=== PATIENT | female | born 1980 | race Caucasian/White ===

== ENCOUNTER 2022-05-01 08:03 | Emergency (ER) | payer OTHER, SELFPAY ==
[2022-05-01 08:06] VITALS: BP 131/89; PULSE 85; RESP 20; TEMP 36.7; O2SAT 99
--- NOTE | 2022-05-01 08:20 | ED.URI ---
HPI - URI/Sore Throat General Chief Complaint: Upper Respiratory Infection Stated Complaint: Sinus Pain Time Seen by Provider: 05/01/22 08:30 Source: patient and RN notes reviewed Mode of arrival: ambulatory Limitations: no limitations History of Present Illness HPI Narrative: 41-year-old female presents concern for 90 day history of symptoms. She reports productive cough, nasal congestion and green drainage, left facial pain jaw pain, left tooth pain, eye pain and pressure. She reports she has been taking [id number] medications without relief. She reports she saw her primary doctor on Saturday who prescribed her lidocaine mouthwash that she has not had relief from. She reports swelling under her eye this morning when she woke up. MD elicited complaint: rhinorrhea and nasal congestion Related Data Home Medications Medication Instructions Recorded Confirmed esomeprazole magnesium 20 mg 20 mg PO DAILY 05/01/22 05/01/22 capsule,delayed release (Nexium) valsartan 160 mg tablet 160 mg DAILY 05/01/22 05/01/22 Allergies Allergy/AdvReac Type Severity Reaction Status Date / Time No Known Allergies Allergy Verified 05/01/22 08:21 Review of Systems Review of Systems: CONSTITUTIONAL: Reports malaise. Denies chills, sweats, or fever. EYES: Denies visual changes, redness, or discharge. Left eye pressure ENT: Reports rhinorrhea, congestion, sinus pain. Denies otalgia and sore throat. CARDIOVASCULAR: Denies chest pain, palpitations, or edema. RESPIRATORY: Reports productive cough. Denies dyspnea. GASTROINTESTINAL: Denies abdominal pain, nausea, vomiting, diarrhea SKIN: Denies rash or itching. MUSCULOSKELETAL: Denies myalgia. NEUROLOGIC: Report headache. All systems reviewed & are unremarkable except as noted in HPI and below [facility] Comments At time of signature, agree with nursing past medical, surgical, social and family history. There is no relevant family history pertinent to the presenting complaint Exam Narrative: GENERAL: Nontoxic-appearing and in no acute distress. HEAD: Normocephalic EYES: PERRLA, conjunctivae clear, mild swelling under the left eye without concern for periorbital cellulitis. ENT: Nares clear, turbinates edematous and erythematous, sinus tenderness, mild left facial swelling. Mucous membranes moist. TM pearly presley with dull light reflex bilaterally; no tragal tenderness. Oropharynx not erythematous without lesions. Tonsils not enlarged and without exudate, no drooling, no hoarseness, no trismus, uvula midline. NECK: Supple. No lymphadenopathy CHEST: Clear to auscultation, breath sounds equal. No wheezing, rhonchi, rales, or stridor. No respiratory distress, speaks in full sentences. HEART: Regular rate and rhythm. No murmur heard. SKIN: Warm, dry, no rash. NEURO: Alert and oriented x3. PSYCH: Normal mood and affect Course Course Emergency Course: Patient is aware of diagnosis, understands and agrees to treatment plan. Anticipatory guidance given. Patient agrees to follow-up as directed and is aware of reasons to seek care at the emergency department. Portions of this record may have been created with voice recognition software Level of Care: Express Care Visit Vital Signs Vital signs: Vital Signs Temperature 98.0 F 05/01/22 08:06 Pulse Rate 85 05/01/22 08:06 Respiratory Rate 20 05/01/22 08:06 Blood Pressure 131/89 05/01/22 08:06 Pulse Oximetry 99 05/01/22 08:06 Oxygen Delivery Room Air 05/01/22 08:06 Temperature 98.0 F 05/01/22 08:06 Pulse Rate 85 05/01/22 08:06 Respiratory Rate 20 05/01/22 08:06 Blood Pressure 131/89 05/01/22 08:06 Pulse Oximetry 99 05/01/22 08:06 Oxygen Delivery Room Air 05/01/22 08:06 Reviewed. MDM - URI/Sore Throat MDM Narrative Medical decision making narrative: Differential diagnosis considered: Powers virus, strep pharyngitis, allergic rhinitis, upper respiratory tract infection, sinusitis, rhinosinusitis, naso
== END 2022-05-01 08:50 | disposition home or self-care (01) ==
PROVIDERS: Emergency Provider Nurse Practitioner; PCP Internal Medicine
DX: J01.90 Acute sinusitis, unspecified (principal); B96.89 Other specified bacterial agents as the cause of diseases classified elsewhere
CPT/HCPCS: 99213; G0463

== ENCOUNTER 2023-08-12 14:48 | Emergency (ER) | payer OTHER, SELFPAY ==
[2023-08-12 14:50] VITALS: BP 143/96; PULSE 75; RESP 16; TEMP 37.2; O2SAT 100
--- NOTE | 2023-08-12 15:07 | ED.GENADULT ---
HPI - General Adult General Chief complaint: Upper Respiratory Infection Stated complaint: Sore Throat/Runny Nose/Body Aches Source: patient, RN notes reviewed and old records reviewed Mode of arrival: ambulatory Limitations: no limitations History of Present Illness HPI narrative: 42-year-old female presents to [facility] with complaints of cough, congestion, headache, fever that started approximately 12 days ago. Patient taking [id number]-ywx-[id number] medications with little relief. Patient states is now having dark brown phlegm production and nasal discharge. Related Data Home Medications Medication Instructions Recorded Confirmed esomeprazole magnesium 20 mg 20 mg PO DAILY 05/01/22 08/12/23 capsule,delayed release (Nexium) gabapentin 100 mg capsule 100 mg PO TID 08/12/23 08/12/23 norethindrone (contraceptive) 0.35 0.35 mg PO DAILY 08/12/23 08/12/23 mg tablet Allergies Allergy/AdvReac Type Severity Reaction Status Date / Time No Known Allergies Allergy Verified 05/01/22 08:21 Review of Systems Constitutional: Constitutional: Reports no additional constitutional complaints, Denies body ache(s), Denies chills, Denies fatigue, Denies fever(s) and Reports headache(s) Eyes: Eyes: Reports no additional eye complaints and Denies blurry vision ENT: Reports system reviewed and no additional complaints, except as documented, Denies vertigo, Denies dizziness, Denies ear discharge, Denies otalgia, Denies facial pain, Denies headache(s), Reports nasal congestion, Reports nasal discharge, Denies sinus pain, Reports sinus pressure and Denies sore throat Cardiovascular: Cardiovascular: Reports no additional cardiovascular complaints, Denies chest pain, Denies chest pain at rest, Denies rapid heart rate and Denies dyspnea Respiratory: Respiratory: Reports no additional respiratory complaints, Reports chest congestion, Reports cough, Denies pain on inspiration, Denies pain with cough and Denies dyspnea Gastrointestinal: Gastrointestinal: Denies abdominal pain, Denies diarrhea, Denies nausea and Denies vomiting Integumentary/Breasts: Skin/Breast: Denies rash Neurologic: Reports system reviewed and no additional complaints, except as documented, Denies vertigo, Denies dizziness and Denies headache(s) Endocrine: Endocrine: Denies fatigue [facility] Comments At the time of my signature, I reviewed and agree with the nursing past medical, surgical, social, and family history. There is no relevant family history pertinent to the patient complaint. Exam Const: General: cooperative, healthy appearing, no acute distress and well nourished Nutritional Appearance: well nourished Orientation/consciousness: patient oriented x3 Limitations: no limitations HENMT: Head: normal to inspection and normocephalic Ears: external ears normal, TM's normal bilaterally, EAC's normal and mastoids normal Face/Nose/Sinus: normal facial exam Face and sinus: normal facial exam and sinus tenderness frontal Mouth: Yes Normal oral and palatal mucosa present, Yes moist mucous membranes and Yes Abnormal oral and palatal mucosa present erythematous Throat: tonsils normal, uvula midline and no uvular edema Eyes: General: appearance normal, both eyes and all related structures Sclera: sclerae normal Pupils: Equal, round and reactive pupils present Resp: Effort & Inspection: normal respiratory effort, able to speak in complete sentences, no audible wheezes, no cough, no respiratory distress and no retractions Auscultation: clear to auscultation bilaterally, no crackles, no rales, no rhonchi and no wheezes Cardio: Rate: regular rate Rhythm: regular rhythm Skin: General skin exam: normal color and no rashes or lesions noted Neuro: General: patient oriented x3 Cranial nerves: Yes Equal, round and reactive pupils present Psych: Appearance: grossly normal Mental Status: mental status grossly normal Speech and movement: Normal speech and movement present Affect: n
== END 2023-08-12 15:23 | disposition home or self-care (01) ==
PROVIDERS: Emergency Provider Registered Nurse; PCP Internal Medicine
DX: J06.9 Acute upper respiratory infection, unspecified (principal); B37.9 Candidiasis, unspecified; T36.95XA Adverse effect of unspecified systemic antibiotic, initial encounter
CPT/HCPCS: 99213; G0463

== ENCOUNTER 2024-06-02 16:02 | Emergency (ER) | payer SELFPAY | END 2024-06-02 16:12 | disposition left against medical advice (07) | PROVIDERS: Emergency Provider Nurse Practitioner; PCP Internal Medicine | DX: Z53.21 Procedure and treatment not carried out due to patient leaving prior to being seen by health care provider (principal) | CPT/HCPCS: 99199 ==

== ENCOUNTER 2024-09-10 05:52 | Day surgery (SDC) | payer OTHER, SELFPAY ==
[2024-08-20 09:56] VITALS: BMI 31.6
[2024-09-10] VITALS (9 sets, daily range): BP systolic 110–159; BP diastolic 75–113; PULSE 50–86; RESP 14–16; TEMP 36.4–36.8; O2SAT 99–100
--- OUTSIDE RECORDS SUMMARY | 2024-09-10 06:04 | XMS_ITS | Referral Summary ---
Author Organization [facility] [place] [address] Address [address] [place] [address] Phone Care Team Providers Care Final Application Reviewer Name Role Phone Danya Mccollum MD Primary Care Provider [phone] Earnest Dempsey MD Unavailable [phone] Encounters Date Type Department Care Team Description 07/23/2024 7:43 AM FRONT ELEVATOR OPERATOR - 07/23/2024 11:59 PM FRONT ELEVATOR OPERATOR Hospital Encounter [facility] Medical [facility] Medicine [address] [place] [address] [place] [id number] Discharge Disposition: Discharge to home or self care 07/23/2024 10:00 AM FRONT ELEVATOR OPERATOR Office Visit [facility] Orthopedics and Sports Medicine [address] [place] [address] [address], [place] [id number] Jada Morales NP Greater trochanteric bursitis of both hips (Primary Dx) from Last 3 Months Allergies Active Allergy Reactions Criticality Noted Date Comments Doxycycline Other (See comments) High 01/07/2024 Hard to swallow and raw throaT Gabapentin Other (See comments) High 01/07/[address] (NexIUM) 20 mg capsuleIndicati ons:REFLUX Take 1 capsule (20 mg total) by mouth daily before breakfast Active naproxen DR (EC NAPROSYN) 500 mg EC tablet Take 1 tablet (500 mg total) by mouth 2 (two) times a day with meals Active Active Problems Problem Noted Date Diagnosed Date Abnormal uterine bleeding (AUB) 02/24/2024 Deviated nasal septum 09/03/2022 Overview (09/03/2022): Added automatically from request for surgery [id number] Nasal turbinate hypertrophy 09/03/2022 Overview (09/03/2022): Added automatically from request for surgery [id number] Chronic sinusitis 09/03/2022 Overview (09/03/2022): Added automatically from request for surgery [id number] Greater trochanteric bursitis of both hips 06/07 Social History Tobacco Use Types Packs/Day Years Used Date Smoking Tobacco: Former Cigarettes 0.3 10 1 2004 Passive Smoke Exposure: Past Smokeless Tobacco: Never Tobacco Cessation:Counseling Given: Not Answered Alcohol Use Standard Drinks/Week Comments Yes 0 (1 standard drink = 0.6 oz pur e alcohol) AUDIT-C Answer Date Recorded Q1: How often do you have a drink containing alc ohol? 2-3 times a week 04/06/2024 Q2: How many drinks containi ng alcohol do you have on a typical day when you are drinking? 1 or 2 04/06/2024 Q3: How often do you have si x or more drinks on one occasion? Never 04/06/2024 Hunger Vital Sign Answer Date Recorded Within the past 12 months, y ou worried that your food would run out before you got the money to buy more. Never true 05/04/20 24 Within the past 12 months, t he food you bought just didn't last and you didn't have money to get more. Never true 05/04/2024 Personal Safety Answer Date Recorded Have you ever been in or are you currently in a harmful physical or emotional relationship or is someone making you feel afraid or unsafe? Denies 04/06/2024 Comments No Sex and Gender Information Value Date Recorded Sex Assigned at Not on file Legal Sex Female 11:49 PM FRONT ELEVATOR OPERATOR Gender Identity Not on file Sexual Orientation Not on file Last Filed Vital Signs Vital Sign Reading Time Taken Comments Blood Pressure 122/85 07/23/2024 10:07 AM FRONT ELEVATOR OPERATOR Pulse 73 07/23/2024 10:07 AM FRONT ELEVATOR OPERATOR Temperature 36.4 C (97.5 F) 04/06/2024 10:32 AM CDT Respiratory Rate 9 04/06/2024 12:10 PM CDT Oxygen Saturation 99% 05/04/2024 11:23 AM FRONT ELEVATOR OPERATOR Inhaled Oxygen Concentration - - Weight 98.4 kg (217 lb) 07/23/2024 10:07 AM FRONT ELEVATOR OPERATOR Height 172.7 cm (5' 8 ) 07/23/2024 10:07 AM FRONT ELEVATOR OPERATOR Body Mass Index 32.99 07/23/2024 10:07 AM FRONT ELEVATOR OPERATOR Plan of Treatment Not on file Procedures Procedure Name Priority Date/Time Associated Diagnosis Comments XR HIPS BILATERAL 3 OR 4 VW Schedule Routine, Read Routine (OP Routine) 07/23/2024 10:02 AM FRONT ELEVATOR OPERATOR Greater trochanteric bursitis of both hips IA ARTHROCENTESIS ASPIR&/INJ MAJOR JT/BURSA W/O US Routine 07/23/2024 10:00 AM FRONT ELEVATOR OPERATOR Greater trochanteric bursitis of both hips IA ARTHROCENTESIS ASPIR&/INJ MAJOR JT/BURSA W/O US Routine 07/23/2024 10:00 AM FRONT ELEVATOR OPERATOR Greater trochanteric bursitis of both hips SCREENING MAMMOGRAM BILATERAL W TORSTEN W IMPLANTS Schedule Routine, Read Routine (OP Routine) 09/23/2023 8:49 AM CDT Screening mammogram, encounter for from Last 3 Months or Most Recently Relevant to Health Maintenance Results * XR Hips Bilateral 3 or 4 Views (07/23/2024 10:02 AM FRONT ELEVATOR OPERATOR) Anatomical Region Laterality Modality Lower Extremities, Hip, Pelvis Bilateral D igital Radiography Narrative 07/23/2024 10:36 AM FRONT ELEVATOR OPERATOR X-ray of the bilateral hips viewed and interpreted. There is no evidence of fracture, subluxation, or bony abnormality. us Jada Morales NP IMG XR PROCEDURES Final Result * IA ARTHROCENTESIS ASPIR&/INJ MAJOR JT/BURSA W/O US (07/23/2024 10:00 AM FRONT ELEVATOR OPERATOR) Narrative Jada Morales NP - 07/23/2024 10:00 AM FRONT ELEVATOR OPERATOR Jada Morales NP 07/23/2024 10:36 AM Greater trochanteric bursa injection Performed by: Jada Morales NP Authorized by: Jada Morales NP Greater Trochanteric Bursa Injection: Consent Given by: Patient Site marked: the procedure site was marked Timeout: prior to procedure the correct patient, procedure, and site was verified Verbal consent obtained?: Yes Prior to the start of the procedure, verbal verification by the procedure participant(s) confirmed (as applicable): corect patient idenity; correct site/side marked and visible; agreement on the procedure to be done; correct patient positioning; an accurate procedure consent form, relevant images and results correctly labeled and displayed; any safety precautions based on clinical history and/or medication use have been addressed.: Supporting Documentation: Indications: Pain and therapeutic Procedure Details: Site: Left Greater Trochanteric Bursa Prep: patient was prepped and draped in usual sterile fashion Patient position: Sidelying Needle Size: 22 G Ultrasound guidance: No Approach: Lateral Medications: 80 mg methylPREDNISolone acetate 80 mg/mL; 4 mL lidocaine 20 mg/mL (2 %) Patient tolerance: Patient tolerated the procedure well with no immediate complications Result [facility] Jada Morales NP IN CLINIC/BEDSIDE ORDER [place] Final Result * IA ARTHROCENTESIS ASPIR&/INJ MAJOR JT/BURSA W/O US (07/23/2024 10:00 AM [facility]) Narrative Jada Morales NP - 07/23/2024 10:00 AM FRONT ELEVATOR OPERATOR Jada Morales NP 07/23/2024 10:36 AM Greater trochanteric bursa injection Performed by: Jada Morales NP Authorized by: Jada Morales NP Greater Trochanteric Bursa Injection: Consent Given by: Patient Site marked: the procedure site was marked Timeout: prior to procedure the correct patient, procedure, and site was verified Verbal consent obtained?: Yes Prior to the start of the procedure, verbal verification by the procedure participant(s) confirmed (as applicable): corect patient idenity; correct site/side marked and visible; agreement on the procedure to be done; correct patient positioning; an accurate procedure consent form, relevant images and results correctly labeled and displayed; any safety precautions based on clinical history and/or medication use have been addressed.: Supporting Documentation: Indications: Pain and therapeutic Procedure Details: Site: Right Greater Trochanteric Bursa Prep: patient was prepped and draped in usual sterile fashion Patient position: Sidelying Needle Size: 22 G Ultrasound guidance: No Approach: Lateral Medications: 80 mg methylPREDNISolone acetate 80 mg/mL; 4 mL lidocaine 20 mg/mL (2 %) Patient tolerance: Patient tolerated the procedure well with no immediate complications Jada Moraels ATHLETIC TEAM PHYSICIAN IN CLINIC/BEDSIDE ORDER [place] Final Result * Screening Mammogram Bilateral W Torsten W Implants (09/23/2023 8:49 AM CDT) Anatomical Region Laterality Modality Breast Bilateral Mammography 09/23/2023 8:58 AM CDT Impressions 09/23/2023 8:58 AM CDT There is no mammographic evidence of malignancy. A 1 year screening mammogram is recommended. BI-RADS: 1 - Negative. The patient has been or will be contacted. The patient will be entered into a reminder system with a target due date of 1 year for her next mammogram. Electronically signed by: Areli Kim 09/23/2023 8:58 AM CDT EXAMINATION: SCREENING MAMMOGRAM BILATERAL W TORSTEN W IMPLANTS ORDERING HEALTHCARE PROVIDER: SELF SCREENING MAMMOGRAM HISTORY: Routine screening mammography. COMPARISON: 01/09/2021 TECHNIQUE: CC and MLO views of the bilateral breasts were obtained with digital technique using breast tomosynthesis with C view. Computer aided detection was utilized. FINDINGS: DENSITY: There are scattered fibroglandular elements in the bilateral breasts. BREASTS: There are bilateral retroglandular saline implants. There are no suspicious masses, suspicious calcifications, or other suspicious findings in either breast. There has been no suspicious interval change. us Self Screening Mammogram IMG MAMMO PROCEDURES Fi nal Result from Last 3 Months or Most Recently Relevant to Health Maintenance Insurance [facility] [place] [facility] Care Teams Final Application Reviewer Relationship Specialty Start Date End Date Danya Mccollum MD [address] [place] [address] PCP - General 11/09/20 Earnest Dempsey MD [address] [place] [address] [address] [place] [id number] [employer] Obstetrics and Gynecology 11/30/21
--- OUTSIDE RECORDS SUMMARY | 2024-09-10 06:04 | XMS_ITS | Data Portability ---
Author Organization [facility] Address [address] [facility] [place] [address] Care Team Providers Care Linotyper Name Role Phone QUEZADA BERKLEY Primary Care Provider [phone] Assessment No assessment recorded. Plan of Treatment Reminders Order Date Submit Date Provider Last Modified By Organization Details Last Modified Time Details Appointments ANY 30 2024 09:30A M BERKLEY QUEZADA, BELTING INSPECTOR-BC Not available Not available Not available Lab HIV 1 + 2, meanin gful use set 2024 025 [facility], [address] [facility], [facility] [address], [place], [address], 08/23/2024 16:09:16 RPR (rapid plasma reagin ), serum 2024 025 [facility], [address] [facility], [facility] [address], [place], [address], 08/23/2024 16:09:15 HBsAg (hepat itis B surfac e Ag), EIA, serum 2024 025 [facility], [address] [place] [address], [facility] [address], [place], [address], 08/23/2024 16:09:14 chlamy waleska tracho matis + neisse damaris gonorr hoeae + tricho monas vagina lis rRNA panel, RANDALL+pr obe 2024 025 [facility], [address] [facility], [facility] [address], [place], [address], 08/23/2024 16:09:13 Hepati tis C IgG Ab, qual, serum 2024 025 [facility], [address] [facility], [facility] [address], [place], [address], 08/23/2024 16:09:10 mycopl asma genita alism DNA, QL, RANDALL+pr obe, urine 2024 025 [facility], [address] [facility], [facility] [address], [place], [address], 08/23/2024 16:09:12 HSV 2 IgG Ab, QN, IA, serum 2024 025 [facility]), Patient Can Go To The Location Of Their Choice, [id number] 08/23/2024 16:09:11 influe nza virus A + B + SARS-C oV-2 (COVID 19) Ag panel, rapid IA, upper respir atory specim en 2023 024 nsuthan In-Office Order, Internal Use Only DO Not Attach Compendium DO Not Attach Compendium, Do Not Delete/merge, [id number] 04/16/2024 11:41:34 mycopl asma gencharmaine antoine DNA, qualit ative, PCR 2023 024 [facility], [address] [place] [address], [facility] [address], [place], [address], 02/24/2024 16:11:51 vagina l pathog ens panel, RANDALL+pr obe, vagina l fluid 2023 024 [facility], [address] [facility], [facility] [address], [place], [address], 02/24/2024 16:11:50 Referral ENT surger y referr al 2024 025 [email or web address] Hugo Melendrez MD, [address] [facility] [address], [address], [place], [address], 09/03/2024 14:00:49 plasti c surgeo n referr al 2023 [email or web address] Gretel An MD, [address] [facility] [address], [place], [address], 07/01/2024 12:07:45 Procedures None record ed. Surgeries None record ed. Imaging None record ed. Medication Orders sulfam ethoxa zole 800 mg-tri methop rim 160 mg tablet 2024 [id number], [address], [place], [place], [id number], 08/19/2024 10:35:12 Difluc an 150 mg tablet 2024 [facility], [address], [place], [place], [id number], 08/19/2024 10:35:11 amoxic illin 500 mg tablet 2023 [facility]18263, [address], [place], [place], [id number], 05/04/2024 09:16:43 albute rol sulfat e HFA 90 mcg/ac tuatio n aeroso l inhale r [facility], [address], [place], [place], [id number], 08/14/2024 15:47:06 Difluc an 150 mg tablet 20[facility], [address], [place], [place], [id number], 08/19/2024 10:34:46 Solose c [address] granul es in packet 2023 [facility], [address], [place], [place], [id number], 08/14/2024 15:47:57 Patient TargetsNo targets recorded. Patient Instructions Encounter Date Encounter Id Patient Instructions Last Modified By Organization Details Last Modified Time 02/20/2024 [id number] A healthy lifestyle: care instructions [email or web address] Not available 02/20/2024 11:21:02 bacterial vaginosis: care instructions [email or web address] Not available 02/20/2024 11:21:02 04/16/2024 [id number] keep f/u nsuthan Not available 04/16 13:53:55 05/04/2024 [id number] A healthy lifestyle: care instructions nsuthan Not available 05/04/2024 09:28:00 f/u in 6 month nsuthan Not available 1 07/04/2023 09:28:15 08/14/2024 [id number] Plan of care has been discussed with patient including expected therapeutic benefits and potential side effects of prescribed medication and treatments. Patient verbalizes understanding and is in agreement with the plan of care. Patient was instructed to keep all scheduled appointments and contact the clinic for any additional problems. Not available 09/07/2024 06:08:00 Reason for Referral Plastic Surgeon Referral for Excess skin of abdominal wall Referring Physician: Marvni Mccollum, Internal Medicine, Encounter Date: 05/04/2024 ENT Surgery Referral for Dev iated nasal septum Referring Physician: Berkley Quezada, Family Medicine, Encounter Date: 08/14/2024 Results Created Date Observation Date Name Description Value Unit Range Abnormal Flag Note LastModifiedBy Organization Detail LastModifiedTime 02/20/20 24 02/24/2024 NUSWA B VAGIN ITIS PLUS (VG+) atopobium vaginae HIGH - 2 score abnormal Not Available [facility]) [address] [facility], [place], [address], 02/24/2024 16:11:50 02/20/20 24 02/24/2024 NUSWA B VAGIN ITIS PLUS (VG+) bvab 2 HIGH - 2 score abnormal Not Available [facility] ([facility]) [address] [facility], [place], [address], 02/24/2024 16:11:50 02/20/20 24 02/24/2024 NUSWA B VAGIN ITIS PLUS (VG+) megasphaera 1 HIGH - 2 score abnormal Calcu late total score by addin g the 3 indiv idual bacte rial vagin osis (BV) marke r score s toget her. Total score is inter prete d as follo ws: Total score 0-1: Indic ates the absen ce of BV. Total score 2: Indet ermin ate for BV. Addit ional clini melva data shoul d be evalu ated to estab wesley a diagn osis. Total score 3-6: Indic ates the prese nce of BV. Not Available [facility] ([facility]) [address] [facility], [place], [address], 02/24/2024 16:11:50 02/20/20 24 02/24/2024 NUSWA B VAGIN ITIS PLUS (VG+) dianne albicans, RANDALL NEGATI VE negati ve Not Available [facility] ([facility]) [address] [place], [address], 02/24/2024 16:11:50 02/20/20 24 02/24/2024 NUSWA B VAGIN ITIS PLUS (VG+) dianne glabrata, RANDALL NEGATI VE negati ve Not Available [facility] ([facility]) [address] [place], [address], 02/24/2024 16:11:50 02/20/20 24 02/24/2024 NUSWA B VAGIN ITIS PLUS (VG+) trich vag by RANDALL NEGATI VE negati ve Not Available [facility] ([facility]) [address] [place], [address], 02/24/2024 16:11:50 02/20/20 24 02/24/2024 NUSWA B VAGIN ITIS PLUS (VG+) chlamydia trachomatis, RANDALL NEGATI VE negati ve Not Available [facility]) [address] [facility], [place], [address], 02/24/2024 16:11:50 02/20/20 24 02/24/2024 NUA B VAGIN ITIS PLUS (VG+) neisseria gonorrhoeae, RANDALL NEGATI VE negati ve Not Available [facility]) [address] [facility], [place], [address], 02/24/2024 16:11:50 02/20/20 24 02/24/2024 M GENIT ALIUM RANDALL, SWAB mycoplasma genitalium RANDALL NEGATI VE negati ve Not Available [facility]) [address] [facility], [place], [address], 02/24/2024 16:11:51 04/16/20 24 04/16/2024 influ ash virus A + B + SARS- CoV-2 (COVI D19) Ag panel , rapid IA, upper respi rator y speci men Flu A negati ve Not Available In-Office Order Internal Use Only DO Not Attach Compendium DO Not Attach Compendium, Do Not Delete/merge, [id number] 04/16/2024 11:38:18 04/16/20 24 04/16/2024 influ ash virus A + B + SARS- CoV-2 (COVI D19) Ag panel , rapid IA, upper respi rator y speci men Flu B negati ve Not Available In-Office Order Internal Use Only DO Not Attach Compendium DO Not Attach Compendium, Do Not Delete/merge, [id number] 04/16/2024 11:38:18 04/16/20 24 04/16/2024 influ ash virus A + B + SARS- CoV-2 (COVI D19) Ag panel , rapid IA, upper respi rator y speci men Rapid SARS CoV 2 Ag, QL IA, respiratory specimen negati ve Not Available In-Office Order Internal Use Only DO Not Attach Compendium DO Not Attach Compendium, Do Not Delete/merge, [id number] 04/16/2024 11:38:18 08/20/19 25 08/20/2024 HCV ANTIB CATRINA hep C virus Ab NON REACTI VE nonrea ctive HCV antib catrian alone does not diffe renti ate betwe en previ ously resol jadon infec tion and activ e infec tion. Equiv ocal and React davey HCV antib catrina resul ts shoul d be follo wed up with an HCV RNA test to suppo rt the diagn osis of activ e HCV infec tion. Not Available [facility] ([facility]) [address] [facility], [place], [address], 08/23/2024 16:09:09 08/20/19 25 08/20/2024 HSV-2 AB, IGG hsv 2 IgG, type spec NON REACTI VE nonrea ctive Ple ase note refer ence inter edgar singh e Curre nt guide lines and recom menda tions do not recom mend routi ne scree veena for HSV-2 in asymp tomat ic indiv idual s, inclu ding those that are pregn ant. The detec tion of HSV-2 IgG antib odies in a singl e sampl e indic ates previ ous expos ure to HSV-2 but does not give infor matio n as to the site of HSV infec tion or the timin g of expos ure. The predi ctive value of posit davey and negat davey resul ts depen ds on the popul ation 's preva lence and the prete st likel ihood of HSV-2 . HSV-2 IgG testi ng perfo rmed using the [employer] HSV-2 IgG assay . Not Available [facility]) [address] [facility], [place], [address], 08/23/2024 16:09:11 08/20/19 25 08/23/2024 M GENIT ALIUM RANDALL, URINE mycoplasma genitalium RANDALL NEGATI VE negati ve Not Available [facility]) [address] [facility], [place], [address], 08/23/2024 16:09:12 08/20/19 25 08/23/2024 CT, NG, TRICH VAG BY RANDALL chlamydia by RANDALL POSITI VE negati ve abnormal Not Available [facility]) [address] [place], [address], 08/23/2024 16:09:13 08/20/19 25 08/23/2024 CT, NG, TRICH VAG BY RANDALL gonococcus by RANDALL NEGATI VE negati ve Not Available [facility]) [address] [place], [address], 08/23/2024 16:09:13 08/20/19 25 08/23/2024 CT, NG, TRICH VAG BY RANDALL trich vag by RANDALL NEGATI VE negati ve Not Available [facility]) [address] [place], [address], 08/23/2024 16:09:13 08/20/19 25 08/20/2024 HBSAG SCREE N HBsAg screen NEGATI VE negati ve Not Available [facility] ([facility]) [address] [place], [address], 08/23/2024 16:09:14 08/20/19 25 08/20/2024 RPR, RFX QN RPR/C ONFIR M TP RPR NON REACTI VE nonrea ctive Not Available [facility]) [address] [place], [address], 08/23/2024 16:09:15 08/20/19 25 08/20/2024 HIV AB/P2 4 AG WITH REFLE X HIV Ab/P24 Ag screen NON REACTI VE nonrea ctive HIV-1 /HIV- 2 antib odies and HIV-1 p24 antig en were NOT detec roland. There is no labor atory evide nce of HIV infec tion. HIV Negat davey Not Available [facility] ([facility]) [address] [place], [address], 08/23/2024 16:09:16 Result Notes None recorded. Problems Name Problem SNOMED Code Status Onset Date Resolution Date Notes Provider Name and Address Organization Details Recorded Time Pain of left hip joint 022143816769 100 Completed 201711/08/2020 Danya Mccollum MD Attn: Saminaitalo combs,[address], [place], [address], [place] - [facility] 1 10:14:42 Adult health examinati on Completed 201711/08/2020 Danya Mccollum MD Attn: Accountitalo g,[address], [place], [address], [facility] - [facility] 1 10:14:16 Body mass index 30+ - obesity 133131224 Completed 201711/23/2020 Danya Mccollum MD Attn: Lonnie combs,[address], [place], [address], [facility] - [facility] 1 10:01:44 Liver function tests outside reference range 284934006 Active 2020 11/2020 -jaimie Jimenez MA null, [place] - [facility] 1 09:53:13 Obesity 459754635 Active 2020 Danya Mccollum MD Attn: Lonnie combs,[address], [place], [address], [place] 2 10:22:32 Hypertens davey disorder 69954645 Active 2021 off med Danya Mccollum MD Attn: Lonnie g,[address], [place], [address], [place] 3 15:51:14 Hyperlipi demia 97349890 Active 2021 Danya Mccollum MD Attn: Lonnie combs,[address] [facility] [address], [place], [address], [place] 2 10:23:40 Deviated nasal septum 110352320 Active 2022 s/p sx 11/06 Danya Mccollum MD Attn: Lonnie combs,[address] [place], [address], [facility] 3 09:47:49 Abnormal uterine bleeding 458532210443 00 Active 2023 Earnest Dempsey MD Attn: Lonnie combs,[address] [place], [address], [facility] 4 13:06:58 Excess skin of abdominal wall 193835213 Active 2023 Danya Mccollum MD Attn: Lonnie garret,[address] [place], [address], [facility] 4 09:24:21 Strain of quadricep s tendon 226710310 Completed 11/08/2020 Danya Mccollum MD Attn: Lonnie combs,[address] [place], [address], [facility] 1 10:14:45 Injury of muscle and tendon at hip and thigh level 203924698 Completed 11/08/2020 Danya Mccollum MD Attn: Lonnie combs,[address] [place] [address], [address], [facility] 1 10:14:39 Cyst of lower eyelid 034938792 Active [facility] 6 11:38:42 Streptoco ccal sore throat 40917557 Completed 201611/08/2020 Danya Mccollum MD Attn: Lonnie combs,[address] [place] [address], [address], [facility] 1 10:14:48 Problem Notes None recorded. Procedures Surgical History Date Name Laterality Status Provider Name and Address Organization Details Recorded Time 04/06/20 hysterectomy completed Daiana Tate MA [facility] 04/16/2024 11:11:42 04/08/20 24 Most Recent Mammogram completed Mey Banks RN [facility] 09/23/2023 16:34:24 10/16/19 23 Repair of nasal septum completed Daiana Tate MA [facility] 10/29/2022 09:49:04 12/01/19 22 laparoscopic salpingo-oophore ctomy completed Daiana Tate MA [facility] 12/05/2021 10:32:05 12/01/19 22 endoscopic destruction of bilateral fallopian tubes completed Daiana Tate MA [facility] 12/05/2021 10:33:09 05/15/20 21 Endometrial Biopsy completed Earnest Dempsey MD Attn: Accounting,[address], [place], [address], [facility] 05/15/2021 14:00:41 12/13/19 21 Date of Last Pap Smear completed Joanne Carranza [facility] 12/20/2020 15:16:15 02/04/20 19 Depo Injection completed Margaret Coleman [facility] 02/03/2019 11:29:56 05/30/20 15 IUD Removal completed Darwin Maria MD Attn: Accounting,[address], [place], [address], [facility] 05/30/2015 11:30:49 06/17/19 13 Breast Implants completed Mey Banks RN [facility] 05/26/2015 12:12:47 SALPINGECTOMY, LAPAROSCOPIC (SURG) completed Misti Hernandez LPN [facility] 12/19/2021 09:07:43 Imaging Results None recorded. Procedure Notes None recorded. Medical Equipment None Reported. Allergies Allergen ID Allergen Name Allergen Category Reaction Reaction Severity Criticality Documentation Date Start Date Code Code System Note Provider Name and Address Organization Details Recorded Time 657277 doxycycli ne Not available other severe Not available 09/30/2023 3640 RxNorm Suici dial thoug hts Not Available Not Available Not Available 899300 gabapenti n medicatio n other severe Not available 09/30/2023 24421 RxNorm suici idial thoug hts Not Available Not Available Not Available Medications Name Sig Start Date Stop Date Status Note LastModified by Organization Details LastModified Time amoxicilli n 500 mg capsule Take 1 capsule every 8 hours by oral route as directed for 7 days. 04/18 completed Not Available Not Available Not Available Mirena 21 mcg/24 hr (up to 8 years) 52 mg intrauteri ne device Take 1 device by intraute rine route. 05/14 completed Not Available Not Available Not Available fluconazol e 100 mg tablet TAKE 1 TABLET BY MOUTH EVERY 72 HOURS 09/29 completed Not Available Not Available Not Available clindamyci n HCl 300 mg capsule Take 1 capsule every 6 hours by oral route. 04/18 completed rx by urgent care Not Available Not Available Not Available azithromyc in 250 mg tablet TK 2 TS PO ON DAY 1, THEN TK 1 T PO D FOR 4 DAYS 09/01 completed Not Available Not Available Not Available ibuprofen 800 mg tablet Take 1 tablet every 8 hours by oral route with meals. 03/26 completed Not Available Not Available Not Available Lidocaine Viscous 2 % mucosal solution TAKE 10 ML BY MOUTH THREE TIMES DAILY FOR 5 DAYS 06/12 completed Not Available Not Available Not Available fluconazol e 150 mg tablet TAKE 1 TABLET BY MOUTH NOW AND REPEAT IN 3 DAYS active Not Available Not Available No t Available benzonatat e 200 mg capsule 01/20 completed Not Available Not Available Not Available hydrocodon e 5 mg-acetami nophen 325 mg tablet 12/05 completed not taking Not Available Not Available Not Available meloxicam 15 mg tablet 11/08 completed Not Available Not Available Not Available metronidaz ole 0.75 % (37.5 mg/5 gram) vaginal gel INSERT 1 APPLICAT ORFUL VAGINALL Y EVERY DAY FOR 5 DAYS 08/14 completed Not Available Not Available Not Available terconazol e 0.8 % vaginal cream Insert 1 applicat orful every day by vaginal route for 3 days. 04/18 completed Not Available Not Available Not Available permethrin 5 % topical cream 12/04 completed Not Available Not Available Not Available penicillin V potassium 500 mg tablet Take 1 tablet twice a day by oral route for 10 days. 01/20 completed Not Available Not Available Not Available metronidaz ole 500 mg tablet TAKE 1 TABLET BY MOUTH EVERY 12 HOURS FOR 7 DAYS 02/19 completed Not Available Not Available Not Available ciprofloxa ramandeep 500 mg tablet Take 1 tablet twice a day by oral route for 3 days. 12/04 completed Not Available Not Available Not Available sulfametho xazole 800 mg-trimeth oprim 160 mg tablet Take 1 tablet every 12 hours by oral route for 7 days. 08/19 completed Not Available Not Available Not Available tramadol 50 mg tablet 04/18 completed Not Available Not Available Not Available acetaminop hen 500 mg tablet 04/16 completed Not Available Not Available Not Available amoxicilli n 500 mg tablet TAKE 1 TABLET BY MOUTH EVERY 8 HOURS FOR 7 DAYS 05/04 completed Not Available Not Available Not Available ciprofloxa ramandeep 0.3 % eye drops INSTILL 1 DROP INTO AFFECTED EYE(S) BY OPHTHALM IC ROUTE EVERY 2 HOURSWHI LE AWAKE FOR 2 DAYS THEN 1 DROP EVERY 4 HRS WHILE AWAKE FOR 5 DAYS 04/18 completed rx by urgent care Not Available Not Available Not Available benzonatat e 100 mg capsule Take 1 capsule 3 times a day by oral route. 04/18 completed Not Available Not Available Not Available cephalexin 500 mg capsule 10/29 completed Not Available Not Available Not Available nystatin 100,000 unit/gram topical cream APPLY TOPICALL Y TO THE AFFECTED AREA TWICE DAILY 05/06 completed Not Available Not Available Not Available mupirocin 2 % topical ointment APPLY SMALL AMOUNT TOPICALL Y TO THE AFFECTED AREA TWICE DAILY 05/29 completed Not Available Not Available Not Available gabapentin 100 mg capsule 08/28 completed Not Available Not Available Not Available ibuprofen 600 mg tablet active Not Available Not Available Not Available polyethyle ne glycol 3350 17 gram/dose oral powder 08/14 completed PRN Not Available Not Available Not Available levofloxac in 500 mg tablet ENT 03/01 completed Not Available Not Available Not Available methylpred nisolone 4 mg tablets in a dose pack FOLLOW PACKAGE DIRECTIO NS 06/12 completed Not Available Not Available Not Available albuterol sulfate HFA 90 mcg/actuat ion aerosol inhaler INHALE 2 PUFFS BY MOUTH THREE TIMES DAILY NEEDED 08/14 completed Not Available Not Available Not Available norethindr one (contracep tive) 0.35 mg tablet TAKE 1 TABLET BY MOUTH EVERY DAY 08/28 completed Not Available Not Available Not Available ondansetro n 4 mg disintegra ting tablet 10/29 completed Not Available Not Available Not Available cefdinir 300 mg capsule TAKE 1 CAPSULE BY MOUTH EVERY 12 HOURS 02/07 completed Not Available Not Available Not Available fluticason e propionate 50 mcg/actuat ion nasal spray,susp ension SHAKE LIQUID AND USE 2 SPRAYS IN EACH NOSTRIL EVERY DAY 05/29 completed not taking at the moment Not Available Not Available Not Available medroxypro gesterone 150 mg/mL intramuscu lar suspension Inject 1 mL every 3 months by intramus cular route. 11/08 completed Not Available Not Available Not Available doxycyclin e hyclate 100 mg tablet TAKE 1 TABLET BY MOUTH TWICE DAILY FOR 10 DAYS 09/29 completed Not Available Not Available Not Available naproxen 500 mg tablet 04/16 completed Not Available Not Available Not Available amoxicilli n 875 mg-potassi um clavulanat e 125 mg tablet TAKE 1 TABLET BY MOUTH EVERY 12 HOURS FOR 10 DAYS 06/12 completed Not Available Not Available Not Available mupirocin calcium 2 % nasal ointment APPLY ONE-HALF OF THE OINTMENT FROM THE TUBE INTO EACH NOSTRIL BY TOPICAL ROUTE 2 TIMES PER DAY IN THE MORNING AND EVENING 04/18 completed rx by urgent care Not Available Not Available Not Available oxycodone 5 mg tablet 04/16 completed not taking Not Available Not Available Not Available valsartan 160 mg tablet TAKE 1 TABLET BY MOUTH EVERY DAY active Not Available Not Available No t Available azithromyc in 500 mg tablet TAKE 2 TABLETS BY MOUTH EVERY DAY FOR 1 DAY active Not Available Not Available No t Available Sprintec (28) 0.25 mg-0.035 mg tablet 12/04 completed Not Available Not Available Not Available nitrofuran toin monohydrat e/macrocry stals 100 mg capsule Take 1 capsule every 12 hours by oral route for 7 days. 11/08 completed Not Available Not Available Not Available Nexium active otc Not Available Not Availa ble Not Available Virtussin AC 10 mg-100 mg/5 mL oral liquid Take 10 mL every 4 hours by oral route as directed . 04/18 completed Not Available Not Available Not Available Solosec [address] granules in packet 2 g PO x1 08/14 completed Not Available Not Available Not Available BinaxNOW COVID-19 Ag Self Test kit TEST DIRECTED TODAY 04/27 completed Not Available Not Available Not Available Vitals Date Recorded Body height Body mass index (BMI) Body weight Systolic blood pressure Diastolic blood pressure Provider Name and Address Organization Details Last Updated DateTime 02/20/2024 175.26 cm 31.5 kg/m2 59033.61 g 152 mm[Hg] 97 mm[Hg] Sita Jimenez [place] [facility] 4 10:09:40 Date Recorded Body height Body mass index (BMI) Body weight Heart rate Respiratory rate Body temperature Oxygen saturation Oxygen saturation in Arterial blood by Pulse oximetry Systolic blood pressure Diastolic blood pressure Provider Name and Address Organization Details Last Updated DateTime 4 175.26 cm 31.9 kg/m2 83016.6 7 g 78 /min 14 /min 97.5 [degF] 99 % 99 % 130 mm[Hg] 88 mm[Hg] Daiana Tate MA [facility] 4 11:14:28 Date Recorded Body height Body mass index (BMI) Body weight Heart rate Body temperature Oxygen saturation Oxygen saturation in Arterial blood by Pulse oximetry Respiratory rate Systolic blood pressure Diastolic blood pressure Provider Name and Address Organization Details Last Updated DateTime 4 175.26 cm 32.6 kg/m2 580518. 91 g 78 /min 97.5 [degF] 99 % 99 % 16 /min 137 mm[Hg] 90 mm[Hg] Leigh Lozada MA [facility] 4 09:11:31 Date Recorded Body height Body mass index (BMI) Body weight Body temperature Respiratory rate Heart rate Oxygen saturation Oxygen saturation in Arterial blood by Pulse oximetry Systolic blood pressure Diastolic blood pressure Systolic blood pressure Diastolic blood pressure Provider Name and Address Organization Details Last Updated DateTime 5 175.26 cm 32.2 kg/m2 87771.4 2 g 96.9 [degF] 16 /min 65 /min 99 % 99 % 138 mm[Hg] 99 mm[Hg] 145 mm[Hg] 91 mm[Hg] Sylvia Denney MA [facility] 5 15:56:23 Date Recorded Body height Body mass index (BMI) Body weight Heart rate Systolic blood pressure Diastolic blood pressure Provider Name and Address Organization Details Last Updated DateTime 5 175.26 cm 31.4 kg/m2 13367.7 7 g 75 /min 150 mm[Hg] 104 mm[Hg] Joanne Sepulveda [facility] 5 10:35:57 Social History Question Answer Notes LastModified by Organization Details LastModified Time Tobacco Smoking Status Never Smoker Joanne clements [facility] 09/01/2021 11:13:45 Do You Have An Advance Directive? No Information not available 11/08/2020 What Is Your Level Of Alcohol Consumption? Occasional Information not available 11/08/2020 Are You Blind Or Do You Have Difficulty Seeing? Yes Glasses Information not available 08/28/2022 Is Blood Transfusion Acceptable In An Emergency? Yes Information not available 12/12/2020 What Is Your Level Of Caffeine Consumption? Moderate Coffee Information not available 11/23/2020 In The 14 Days Before Symptom Onset, Have You Had Close Contact With A Laboratory-con firmed COVID-19 While That Case Was Ill? No Information not available 11/08/2020 In The 14 Days Before Symptom Onset, Have You Had Close Contact With A Person Who Is Under Investigation For COVID-19 While That Person Was Ill? No Information not available 11/08/2020 Have You Been To An Area Known To Be High Risk For COVID-19? No Information not available 11/08/2020 Are You Currently Employed? Yes Information not available 11/08/2020 Are You Deaf Or Do You Have Serious Difficulty Hearing? Yes Difficulty Hearing In Right Ear Information not available 03/21/2021 What Type Of Diet Are You Following? REGULAR Healthy Lifestyle Information not available 11/08/2020 Do You Or Have You Ever Used E-cigarettes Or Vape? Never Used Electronic Cigarettes Information not available 04/18/2020 What Is The Highest Grade Or Level Of School You Have Completed Or The Highest Degree You Have Received? [id number] Information not available 11/08/2020 What Is Your Occupation? [employer] Information not available 11/08/2020 Have There Been Any Changes To Your Family Or Social Situation? No [email or web address] Information not available 12/20/2020 Are There Any Guns Present In Your Home? Yes Information not available 11/08/2020 Live Alone Or With Others? With Others [email or web address] Information not available 12/05/2015 Do You Have A High School Diploma Or Higher Education? Yes Information not available 11/08/2020 Do You Sometimes Have To Miss Your Medical Appointments Due To Difficult Getting Transportation ? No Information not available 11/08/2020 Do You Feel Unfairly Treated Due To Things Such As Race, Age, Gender, Disability Or Some Other Reason? No Information not available 11/08/2020 Do You Feel Physically And Emotionally Safe While Living At Home? Yes Information not available 11/08/2020 Do You Feel Physically And Emotionally Safe In Your Neighborhood Or Other Public Places? Yes Information not available 11/08/2020 What Was The Date Of Your Most Recent Tobacco Screening? 08/14/2024 Information not available 08/14/2024 How Many Children Do You Have? 2 [email or web address] Information not available 05/30/2015 Do You Have Any Pets? Yes Information not available 12/27/2020 What Is Your Relationship Status? Information not available 11/08/2020 Do You Use Your Seat Belt Or Car Seat Routinely? Yes Information not available 11/08/2020 Seat Belts Used Routinely Yes [email or web address] Information not available 12/05/2015 Are You Sexually Active? No Information not available 12/12/2020 Smoke Alarm In Home Yes [email or web address] Information not available 12/05/2015 Do You Have Smoke And Carbon Monoxide Detectors In Your Home? Yes Information not available 11/08/2020 Are You Passively Exposed To Smoke? No [email or web address] Information not available 12/19/2021 Do You Or Have You Ever Used Smokeless Tobacco? Never Used Smokeless Tobacco Information not available 04/18/2020 How Much Tobacco Do You Smoke? No Information not available 04/18/2020 Do You Feel Stressed (tense, Restless, Nervous, Or Anxious, Or Unable To Sleep At Night)? [id number] Information not available 11/08/2020 Do You Use Any Illicit Or Recreational Drugs? No Information not available 11/08/2020 Do You Use Sunscreen Routinely? No Information not available 02/07/2021 Has Tobacco Cessation Counseling Been Provided? No Information not available 12/12/2020 On What Date Was Tobacco Cessation Counseling Provided? 08/14/2024 Information not available 08/14/2024 What Type Of Noise Exposure Are You Exposed To? NoExposureToExcessive Noise Information not available 12/27/2020 Do You Or Have You Ever Used Any Other Forms Of Tobacco Or Nicotine? No Information not available 11/08/2020 Sex: Female Functional Status Question Answer Note LastModified by [email or web address] ion Details LastModified Time Are you able to care for yourself? Yes [email or web address] Information not available 12/05/2015 What is your exercise level? Moderate 3-4 miles a week Information not available 11/08/2020 Mental Status None recorded. Family History Relationship Description Onset Age of this Age Resolved Age Notes LastModified by Organization Details LastModified Time Mother Disorder of thyroid gland [email or web address] Not available 2016 01:10:31 Mother Hypertensive disorder [email or web address] Not available 2016 01:10:42 Mother Neuropathy Not availa ble 11/08/2020 10:04:46 Father Hypertensive disorder [email or web address] Not available 2016 01:10:42 Medical History Condition Response Coronary Artery Disease N Other N High Blood Pressure N Atrial Fibrillation N Breast Cancer N Blood Clots N COPD N Depression N Lung Disease N Breast Problem N Anesthesia Complications N Headaches/Migraines N Anxiety Disorder N Muscle, Joint, or Bone Problems N Infertility N Polyps N Acid Reflux (GERD) Y Cancer N Stroke N Endometriosis N High Cholesterol N Liver Disease N Headaches N Thyroid Problems N Kidney or Bladder Problems N GI Problems N Acne N Skin Problems N Eating Disorder N Anemia N Heart Attack (PR) N Ovarian Cancer N Diabetes N Blood Transfusions N Seizures/Epilepsy N Abuse/Domestic Violence N Asthma N Allergies N Hepatitis N Heart Disease N Pre-Eclampsia Y Osteoporosis N Heart Failure N Gynecological History Statement/Question Response Abnormal Pap N Flow Heavy Date of LMP 04/05/2024 On BCP's at Conception? N STIs/STDs Y HPV Vaccine N Duration of Flow (days) 7 Most Recent Mammogram 09/23/2023 Age at Menarche 12 Current Control Method Hysterectom y Age at First Child 26 Sexually Active? N Menses Monthly No Date of Last Pap Smear 12/12/2020 Sexual Problems? N LMP Definite Obstetrics History GPAL:G 3 P 2 0 1 2 Type Value Multiple Births 0 Full Term 2 Induced 0 Spontaneous 1 Premature 0 Living 2 Ectopics 0 Total 3 Past Encounters Encounter ID Performer Location Encounter Start Date Encounter Closed Date Diagnosis/Indication Diagnosis SNOMED-CT Code Diagnosis ICD10 Code Diagnosis Note [id number] MD Carlyn Bermudez ([place] [address]) [address] [facility] [place] [address] 05/30/2015 10:41:32 05/30/2015 11:51:49 Removal of intrauterine device 65027035 Z30.432 [id number] Elijah Lieberman ([facility]) [address] [place] [address] 12/05/2015 10:51:14 12/05/2015 11:24:32 Strain of quadriceps tendon 029863341 S76.111A Injury of muscle and tendon at hip and thigh level 103566406 S76.901A [id number] Elijah Lieberman ([facility]) [address] [place] [address] 03/26/2016 11:11:29 03/26/2016 11:40:13 Cyst of lower eyelid 257586167 H02.829 continue current regimen, see commercial collections specialist . [id number] MD Carlyn Bermudez ([place] [address]) [address] [facility] [place] [address] 05/04/2016 11:42:20 05/04/2016 15:48:08 Dyspareunia 34486211 N94.12 [id number] JACKIE Navarro- Carlyn ([facility]) [address] [place] [address] 05/21/2016 14:46:33 05/22/2016 11:58:58 Upper respiratory infection 91454696 J06.9 [id number] MD Carlyn Bermudez Womens ([place] [address]) [address] [facility] [address] [place] [address] 08/06/2016 10:59:02 08/06/2016 14:17:20 Gynecologic examination 49150476 Z01.947 [id number] [facility] [address] [place] [address] 08/06/2016 13:55:59 08/06/2016 14:56:01 Congestion of nasal sinus 85467980 R09.81 Candidiasis of vagina 72 223662 B37.3 [id number] Julieta Lieberman (Fam Med) [address] [place] [address] 04/10/2017 14:26:08 04/19/2017 10:06:37 Streptococcal sore throat 60220193 J02.0 Strept positive in clinic. Influenza swab neg. Trial of penicillin V. Avoid oral contact with family members. Hx of yeast infection while on Abx. Fluconazol e if she develops symptoms. F/U as needed. [id number] Julieta Lieberman [address] [facility] [address] [facility] [place] [address] 01/20/2018 13:53:25 01/27/2018 13:01:09 Adult health examination 796932819 Z00.00 Weight fluctuatio n. 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 [address] [facility] [place] [address] 03/28/2018 14:41:14 03/31/2018 13:21:23 Cyst of ovary 25118288 N83.806 [id number] MD Carlyn Bermudez [address] [facility] [place] [address] 07/22/2018 15:53:13 07/23/2018 08:51:20 Gynecologic examination 00751735 Z01.577 [id number] MD Carlyn Bermudez [address] [facility] [place] [address] 11/07/2018 11:29:57 11/11/2018 08:18:39 Contraception care management 305186603 Z30.9 [id number] Darwin Maria MD [place] [address] [facility] [place] [address] 11/12/2018 11:44:24 11/12/2018 16:03:50 Contraception care management 382786604 Z30.9 [id number] Mey Banks RN [place] [address] [facility] [place] [address] 02/03/2019 10:56:58 02/05/2019 13:50:15 Uses depot contraception 802034283 Z30.42 [id number] Darwin Maria MD Carlyn [address] [facility] [place] [address] 05/01/2019 09:59:30 05/04/2019 11:14:07 Contraception care management 461865149 Z30.9 [id number] TAYLER Portillo [address] [facility] [place] [address] 07/30/2019 11:35:31 07/31/2019 14:46:08 Contraception care management 585074634 Z30.9 [id number] TAYLER Portillo [address] [place] [address] [place] [address] 10/26/2019 11:53:19 10/27/2019 13:02:41 Contraception care management 642617083 Z30.9 [id number] GLORIA Her [address] [place] [address] 01/04/2020 12:08:32 01/04/2020 21:54:25 Suspected COVID-19 961113033 Z03.818 D/w pt the current pandemic of COVID-19 and call for social isolation in order to blunt the curve and minimize risk and spread. Encouraged patient and family to take restrictio ns seriously. They have verbalized understand ing of such. Viral syndrome 569197653 B34.9 [id number] Kristi FernandezJONA [place] [address] [facility] [place] [address] 01/20/2020 13:49:48 01/21/2020 13:59:53 Contraception care management 138584125 Z30.9 [id number] Kristi Fernandez MARYJOKelin Carlyn [address] 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 [employer] Obesity 356877875 E66.9 healthy diet and exercise discussed with pt Right uppe r quadrant pain 469074158 R10.11 with meal related pain and epigastric tenderness / avoid nsaid /pt is taking otc ppi -check us Noises in ear 413858834 H93.11 pt to see ENT for eval [id number] MD Sree Gardiner (Adult Med) [address] [place] [address] 11/22/2020 16:04:25 11/23/2020 11:44:08 Dysfunction of eustachian tube 08123662 H69.91 Deviated nasal septum 12 5164347 J34.2 [id number] MD Sree Moore (Adult Med) [address] [place] [address] 11/23/2020 09:43:09 11/24/2020 07:59:08 Liver function tests outside reference range 202272283 R94.5 pt to avoid alcohol -will monitor lft Us -ok Obesity 425026782 E66.9 healthy diet and exercise discussed with pt [id number] Marcie Balbuena (CIRCLE SAW OPERATOR) [address] [place] [address] 12/12/2020 10:54:41 12/14/2020 16:17:12 Gynecologic examination 93916105 Z01.419 Last pap done 07/22/18 was negative. HPV testing was not done. Therefore, next pap due prior to next AE. Pap done. Telephone visit one week for results. Venereal d isease screening 968169009 Z11.3 Telephone visit one week for results. Screening for malignant neoplasm of breast 278021010 Z12.39 First mammogram ordered. Christine kidd requested 386501511 Z30.2 Pt. is sure she is finished having children. She does not want any more children, ever. Benefits, risks, and alternativ es to laparoscop ic bilateral salpingect lotus d/w pt. Pt. expressed understand ing. All pt. questions answered. [facility] consent signed and in chart. Menorrhagia 579598178 N9 2.0 Pt has c/o regular but heavy periods. She was taking Depo to manage the bleeding but gained a lot of weight on it and stopped using it. Her last shot was in April 2020.. She wants another solution to her heavy periods.Be nefits, risks, and alternativ es to hydrotherm al endometria l ablation d/w pt. Pt. expressed understand ing. All pt. questions answered. Pt quoted 40% chance of no bleeding and 80% chance of significan tly decreased bleeding after the procedure. Will schedule with laparscopi c salpingect lotus to follow. Obesity 453947323 E66.9 Nutrition and exercise discussed. [id number] Marcie BILLY (CIRCLE SAW OPERATOR) [address] [place] [address] 12/20/2020 14:05:29 12/21/2020 07:58:06 Gynecologic examination 26819639 Z01.419 Last pap done 12/12/20 was negative with negative hr-HPV, dwp. Venereal d isease screening 283482513 Z11.3 Vaginal culture was negative for gonorrhea, chlamydia, and trichomona s, dwp. STD panel was also completely negative. Individual test results dwp. [id number] MD Sree Gardiner (Adult Med) [address] [place] [address] 12/27/2020 10:43:18 12/29/2020 17:59:13 Chronic sinusitis 43126945 J32.9 Dysfunctio n of eustachian tube 90469314 H69.91 [id number] MD Sree Gardiner (Adult Med) [address] [facility] [place] [address] 02/07/2021 13:54:28 02/08/2021 14:30:30 Deviated nasal septum 772432784 J34.2 [id number] MD Sree Moore (Adult Med) [address] [facility] [place] [address] 03/21/2021 08:43:57 03/27/2021 08:43:27 Lesion of nasal mucosa 424015308 J34.89 on L/side with h/o staph infection in the past - pt to avoid picking /use humidifier at night [id number] Earnest Dempsey MD [place] [address] [facility] [address] [place] [address] 05/15/2021 09:41:45 05/16/2021 08:41:59 Menorrhagia 686849025 N92.0 --laparosc opic salpingect lotus and HTA endometria l ablation scheduled for 05/25/21 [id number] MD Sree Moore (Adult Med) [address] [place] [address] 05/29/2021 09:11:47 05/30/2021 12:42:52 Liver function tests outside reference range 431976090 R94.5 abdominal pain-luis miguel r /pt to avoid alcohol -will monitor lft Us -ok Obesity 393765130 E66.9 healthy diet and exercise discussed with pt [id number] MD Sree Moore (Adult Med) [address] [facility] [place] [address] 06/05/2021 13:46:45 06/06/2021 08:52:44 Upper respiratory infection 26122281 J06.9 with exposure to covid-pt to keep good hydration/ steam inhalation self quarantine /monitor pulse ox - pt to go to ER if pulse ox <92% [id number] MD Sree Moore (Adult Med) [address] [facility] [place] [address] 09/01/2021 11:00:14 09/04/2021 09:00:55 Loss of hair 263371318 L65.9 possibly following covid /telogen effluvium- eating healthy /good sleep Elevated blood-pressure reading without diagnosis of hypertension 034498070 R03.0 healthy diet and exercise discussed with pt-monitor bp -reassess with f/u [id number] MD Sree Moore (Adult Med) [address] [facility] [place] [address] 12/05/2021 10:19:40 12/06/2021 08:12:02 Hypertensive disorder 21244078 I10 pt is on valsartan Obesity 528350689 E66.9 healthy diet and exercise discussed with pt Hyperlipidemia 73621167 E78.5 - diet /exercise [id number] MD Charo Hausern [address] [facility] [address] [place] [address] [address] 12/19/2021 09:12:28 12/20/2021 08:50:35 Postoperative visit 509409290 Z09 --Pt healing well--RTC for annual well woman exam in 1 year [id number] MD Sree Moore (Adult Med) [address] [facility] [place] [address] 04/09/2022 09:26:29 04/10/2022 11:08:19 Hypertensive disorder 76668388 I10 stable-pt is on valsartan Obesity 323042260 E66.9 healthy diet and exercise discussed with pt Hyperlipidemia 28188531 E78.5 - diet /exercise Trochanter ic bursitis of right hip 1571006797 20643 M70.61 -medrol lucien /ice pack- exercise [id number] MD Sree Moore (Adult Med) [address] [facility] [place] [address] 04/27/2022 14:51:19 04/30/2022 09:58:11 Upper respiratory infection 93439538 J06.9 -salt water gargle-pt to keep good hydration/ steam inhalation [id number] MD Sree Gardiner (Adult Med) [address] [place] [address] 06/12/2022 10:03:38 06/14/2022 08:12:22 Nasal obstruction 030786020 J34.89 Deviated nasal septum 12 6848778 J34.2 Dysfunctio n of right eustachian tube 6107187824 194035 H69.91 [id number] [facility] [address] [place] [address] 08/28/2022 08:54:14 09/04/2022 15:59:14 Hypertensive disorder 38133975 I10 with low normal bp-pt to lower valsartan 1/2 tab daily Obesity 489705394 E66.9 healthy diet and exercise discussed with pt Hyperlipidemia 06460116 E78.5 - diet /exercise Cobalamin deficiency 190 942840 E53.8 -continue vit b12 Lightheadedness 47890098 8 R42 possibly due to low bp- will lower the bp pill-pt to keep good hydration [id number] [facility] [address] [place] [address] 09/14/2022 14:53:31 09/14/2022 17:05:35 Hypertensive disorder 20735426 I10 stable without med- monitor bp -pt to hold valsartan for nowpt has bp cuff at home Obesity 075433955 E66.9 healthy diet and exercise discussed with pt Hyperlipidemia 77976121 E78.5 - diet /exercise Candidiasis of skin 4988 3006 B37.2 on lower abdominal fold- keep area clean and dry [id number] [facility] [address] [place] [address] 10/29/2022 09:40:58 10/31/2022 10:48:35 Hypertensive disorder 13616833 I10 stable without med- monitor bp -pt to hold valsartan for nowpt has bp cuff at home Deviated nasal septum 12 1218300 J34.2 s/p sx 10/2022 Obesity 450023743 E66.9 healthy diet and exercise discussed with pt Hyperlipidemia 26927810 E78.5 - diet /exercise [id number] MD Sree Moore (Adult Med) [address] [facility] [place] [address] 03/01/2023 14:48:44 03/04/2023 14:03:05 Cyst of skin 094097910 L72.9 on L/face closer to nose [id number] MD Sree Moore (Adult Med) [address] [facility] [place] [address] 05/06/2023 08:59:46 05/13/2023 15:10:37 Hypertensive disorder 68463897 I10 stable without med- monitor bp -pt to hold valsartan for nowpt has bp cuff at home Hyperlipidemia 21045340 E78.5 - diet /exercise Obesity 091714771 E66.9 healthy diet and exercise discussed with pt [id number] MD Carlyn Hauser [address] [facility] [address] [place], [place] [address] [address] 07/22/2023 11:53:00 07/23/2023 09:28:16 Dyspareunia 85319140 N94.12 --recommen d changing sexual positions Pain in pelvis 23791321 R10.2 --Investig ate presence of ovarian cysts Screening mammography 24 973957 Z12.31 Gynecologi c examination 24118569 Z01.419 --CBE and pelvic exam performed Abnormal u terine bleeding 1430842181 9100 N93.9 Depression screening 171 893329 Z13.31 PHQ9=0 [id number] MD Carlyn Hauser [address] [facility] [address] [place] [address] 09/30/2023 14:39:06 10/10/2023 18:10:06 Abnormal uterine bleeding 7278887930 9100 N93.9 --heavy vaginal bleeding, pt has had an ablation and desires a hysterecto my Obesity 582475450 E66.9 [id number] MD Sree Moore (Adult Med) [address] [facility] [place] [address] 11/04/2023 08:52:55 11/08/2023 17:37:02 Hypertensive disorder 21346470 I10 stable without med- monitor bp -pt to hold valsartan for nowpt has bp cuff at home Hyperlipidemia 42615561 E78.5 - diet /exercise Obesity 033193677 E66.9 healthy diet and exercise discussed with pt Excess ski n of abdominal wall 560584809 R23.8 with recurrent candidiasi s-pt to keep area dry and clean [id number] MD Carlyn Hauser [address] [facility] [place] [address] 11/04/2023 16:22:26 11/05/2023 12:56:23 Venereal disease screening 184285313 Z11.3 Obesity 836948011 E66.9 [id number] Earnest Dempsey MD Carlyn [address] [facility] [address] [place] [address] 02/20/2024 09:53:45 03/04/2024 13:03:45 Vaginal discharge 797889425 N89.8 Bacterial vaginosis 4197 05239 N76.0 Obesity 748084146 E66.8 [id number] [facility] [address] [place] [address] 04/16/2024 10:58:18 04/17/2024 15:54:58 Acute bronchitis 78387455 J20.9 with recent abdominal hysterecto my- pt to keep good hdyrationp t to return to clinic if problem continues [id number] [facility] [address] [place] [address] 05/04/2024 08:59:39 05/05/2024 12:14:35 Hypertensive disorder 47013434 I10 stable without med- monitor bp -pt to hold valsartan for nowpt has bp cuff at home Hyperlipidemia 07762150 E78.5 - diet /exercise Obesity 468141322 E66.9 healthy diet and exercise discussed with pt Excess ski n of abdominal wall 082713338 R23.8 with recurrent candidiasi s-pt to keep area dry and clean [id number] BERKLEY QUEZADA, BELTING INSPECTOR-[facility] [address] [place] [address] 08/14/2024 15:28:53 09/07/2024 11:38:46 Deviated nasal septum 944756844 J34.2 -patient agreeable to new ENT referral for further evaluation Infection of skin 995363 000 L08.9 -patient agreeable to treatment with Bactrim b.i.d. for 7 days. SHIFT PRODUCTION ASSOCIATE advised patient to consume OTC probiotic or yogurt while on antibiotic therapy.-P atient to return to clinic if symptoms worsen or do not improve-ER precaution s advised Candidiasis of vagina 72 266071 B37.31 -patient reports being prone to vaginal candidiasi s infections with antibiotic therapy. Patient agreeable to prophylact ic treatment with Diflucan 150 mg. [id number] JACKIE Navarro-[facility] [address] [facility] [place] [address] 08/19/2024 10:28:46 08/26/2024 14:31:47 Venereal disease screening 921193692 Z11.3 1. STD testing done per pt request 2. Educated pt on STD prevention , Condom use 3. Pt verbalized understand ing 4. Will follow up pending lab results, as needed or at next annual Health Concerns Section Related Observation LastModified by Organization Detai ls LastModified Time None Recorded Concern Status LastModified by Organization Details LastModified Time None Recorded Advance Directives Directive N: Payers Encounter Date Sequence Insurance Name Policy Number Policy Vera Covered Member ID Vera Member ID Guarantor Name 02/20/2024 1 [employer] [place] [id number] Corina Curtis [id number] Corina Curtis 04/16/2024 1 [employer] [place] [id number] Corina Curtis [id number] Corina Curtis 05/04/2024 1 [employer] [place] [id number] Corina Curtis [id number] Corina Curtis 08/14/2024 1 [employer] [place] [id number] Corina Curtis [id number] Corina Curtis 08/19/2024 1 [employer] [place] [id number] Corina Curtis [id number] Corina Curtis Notes Date Note Type Note Provider Name and Address Organization Details Recorded Time 02/20/2024 text/html Patient presents with the complaint of abnormal smelling vaginal discharge that worsens after sex. She denies vaginal itching or any other complaints. Earnest Dempsey MD Attn: [address]ing[address] [place], [address], [facility] 02/20/2024 11:21:31 04/16/2024 text/html CoughReported bypatient.Quality:p roductive cough Severity:worsening; moderate Duration:5 days Context:pt just had abdominal hysterectomy Associated Symptoms:no fever; no wheezing Danya Mccollum MD Attn: Accounting[address] [facility], [place], [address], [place] [facility] 04/16/2024 13:54:34 05/04/2024 text/html Hypertension F/UReported bypatient.Associate d Symptoms:no chest pain; no shortness of breath; no palpitations; no edema;dizziness(bet ter) Lifestyle:regular exercise; limiting/avoiding salt Medications:off med pt has extra skin in lower abdomen following wt loss and has repeated rash /pt is asked about options to remove extra skin and pt feels low self-esteem due to that Danya Mccollum MD Attn: Accounting,[address] [facility], [place], [address], [facility] 05/04/2024 13:17:38 08/14/2024 text/html Patient presents to the clinic with acute concerns for a scab in her nose. Patient was established with Dr. Geronimo for primary care. Patient's past medical history includes: Hyperlipidemia, hypertension, deviated nasal septum, GERD, hysterectomy, and salpingectomy-oopho rectomy. -Patient reports chronic scab for the past 2 years. She had a deviated septum corrective surgery.-Patient reports her surgeon left immediately after her surgery was completed. She has tried to follow up with the group, but this has not resulted in improvement in the scab.-She has tried nasal washes and a prescribed gel with little improvement-Patient reports the scab causes facial nerve pain as well.-Patient reports she was previously prescribed gabapentin for nerve pain, but the side effects caused her to discontinue this. JACKIE BLANCO-HILARIO Attn: Accounting[address] [place], [address], [place] [facility] 09/07/2024 06:08:50 08/19/2024 text/html walk in std testing Dali Crane cristóbalm, BELTING INSPECTOR-BC Attn: Accounting[address] , [place], [address], [place] [facility] 08/19/2024 10:47:35 OBGyn Episode Ob Episode Information Episode Created Date Number of Fetuses Patient Bloodtype Patient rh Status Prepregnancy Weight lbs Domestic Partner Domestic Partner Phone Father Name Rn Nursery Status 12/13/19 21 1 CLOSED Fetus Data First Name Last Name Admitted to NICU Weight (g) Sex Living Outcome Pediatric Complications Fetus ID Race Codes Race Delivery Type , Spontane ous [id number] Shaun Calculation Initial Shaun Date Initial Exam Date Initial Exam Provider Initial Ultrasound Date Last Menstrual Period Date Ultra Sound Weeks Gestation 0 Eighteen To Twenty Week Shaun Update Ultra Sound Date Fundal Height At Umbil Quickening Date Ultra Sound Latest Weeks Gestation Final Shaun Confirmed By Final Shaun Confirmed Date Final Shaun Date Ultra Sound Latest Days Gestation 0 0 Menstrual History Last Menstrual Date Menses Monthly On Bcp Conception Prior Menses Frequency Hcg Plus Date Menarche Onset Age Delivery Information Delivery Date Delivery Type Labor Anesthesia Weeks Gestation Incision Type Labor Labor Length Hrs Delivered By Post Complications Tubal Sterilization Discharge Date Comments 0 Discharge Information Feeding Method Contraceptive Method Maternal HG B and HCT Levels Ob Episode Information Episode Created Date Number of Fetuses Patient Bloodtype Patient rh Status Prepregnancy Weight lbs Domestic Partner Domestic Partner Phone Father Name Rn Nursery Status 05/26/20 15 1 CLOSED Fetus Data First Name Last Name Admitted to NICU Weight (g) Sex Living Outcome Pediatric Complications Fetus ID Race Codes Race Delivery Type [id number] F [id number] Vaginal Shaun Calculation Initial Shaun Date Initial Exam Date Initial Exam Provider Initial Ultrasound Date Last Menstrual Period Date Ultra Sound Weeks Gestation 0 Eighteen To Twenty Week Shaun Update Ultra Sound Date Fundal Height At Umbil Quickening Date Ultra Sound Latest Weeks Gestation Final Shaun Confirmed By Final Shaun Confirmed Date Final Shaun Date Ultra Sound Latest Days Gestation 0 0 Menstrual History Last Menstrual Date Menses Monthly On Bcp Conception Prior Menses Frequency Hcg Plus Date Menarche Onset Age Delivery Information Delivery Date Delivery Type Labor Anesthesia Weeks Gestation Incision Type Labor Labor Length Hrs Delivered By Post Complications Tubal Sterilization Discharge Date Comments [address] Maria Discharge Information Feeding Method Contraceptive Method Maternal HG B and HCT Levels Ob Episode Information Episode Created Date Number of Fetuses Patient Bloodtype Patient rh Status Prepregnancy Weight lbs Domestic Partner Domestic Partner Phone Father Name Rn Nursery Status 05/26/20 15 1 CLOSED Fetus Data First Name Last Name Admitted to NICU Weight (g) Sex Living Outcome Pediatric Complications Fetus ID Race Codes Race Delivery Type [id number] M [id number] Vaginal Shaun Calculation Initial Shaun Date Initial Exam Date Initial Exam Provider Initial Ultrasound Date Last Menstrual Period Date Ultra Sound Weeks Gestation 0 Eighteen To Twenty Week Shaun Update Ultra Sound Date Fundal Height At Umbil Quickening Date Ultra Sound Latest Weeks Gestation Final Shaun Confirmed By Final Shaun Confirmed Date Final Shaun Date Ultra Sound Latest Days Gestation 0 0 Menstrual History Last Menstrual Date Menses Monthly On Bcp Conception Prior Menses Frequency Hcg Plus Date Menarche Onset Age Delivery Information Delivery Date Delivery Type Labor Anesthesia Weeks Gestation Incision Type Labor Labor Length Hrs Delivered By Post Complications Tubal Sterilization Discharge Date Comments [address] Maria Discharge Information Feeding Method Contraceptive Method Maternal HG B and HCT Levels
--- OUTSIDE RECORDS SUMMARY | 2024-09-10 06:04 | XMS_ITS | Clinical Summary ---
Author Organization [facility] [address] Address [address] [place] [address] Phone Care Team Providers Care Electronic Equipment Repairer Name Role Phone Danya Mccollum MD Primary Care Provider [phone] Earnest Dempsey MD Unavailable [phone] Allergies Active Allergy Reactions Criticality Noted Date [...] (09/03/2022): Added automatically from request for surgery [id number] Nasal turbinate hypertrophy 09/03/2022 Overview (09/03/2022): Added automatically from request for surgery [id number] Chronic sinusitis 09/03/2022 Overview (09/03/2022): Added automatically from request for surgery [id number] Greater trochanteric bursitis of both hips 06/07 Encounters Date Type Department Care Team Description 07/23/2024 10:00 AM ENGINE BUILDUP MECHANIC Office Visit [facility] Medical [facility] [address] [place] [address] Jada Morales NP Greater trochanteric bursitis of both hips (Primary Dx) 07/23/2024 7:43 AM ENGINE BUILDUP MECHANIC - 07/23/2024 11:59 PM ENGINE BUILDUP MECHANIC Hospital Encounter [facility] [address] [place] [address] Discharge Disposition: Discharge to home or self care from Last 3 Months Surgical History Surgery Date Site/Laterality Comments LAPAROTOMY ovarian cystectomy AUGMENTATION MAMMAPLASTY 06/17/2011 - 06/16/2012 Bilater al TONSILLECTOMY TUBAL LIGATION Medical History Medical History Date Comments Gastroesophageal reflux disease GERD Ovarian cyst Hypertension Deviated nasal septum Nasal turbinate hypertrophy Chronic sinusitis History of hysterectomy 04/06/2024 Family History Medical History Relation Name Comments Hypertension Father Hypertension; Other Father Alive and well; Hypertension Mother Hypertension; Hypothyroidism Mother Hypothyroidis m; Other Mother Alive and well; Heart attack Sister Myocardial infa rction; Anesthesia problems Neg Hx Malig Hyperthermia Neg Hx Pseudochol deficiency Neg Hx Relation Name Status Comments Father Alive Mother Alive Sister Social History Tobacco Use Types Packs/Day Years Used Date Smoking Tobacco: Former Cigarettes 0.3 10 1 5 - 2004 Passive Smoke Exposure: Past Smokeless Tobacco: [...] on file Legal Sex Female 11:49 PM ENGINE BUILDUP MECHANIC Gender Identity Not on file Sexual Orientation Not on file Obstetrics History Para Term AB IAB SAB Ectopic Multiple Livin g Live Births 3 2 2 1 2 Date Outcome GA Total Labor Labor/2nd/3rd Weight Sex Type Anes PTL Manuela A1 A5 Name Clin Term Vaginal Term Vaginal AB Last Filed Vital Signs Vital Sign Reading Time Taken Comments Blood Pressure 122/85 07/23/2024 10:07 AM ENGINE BUILDUP MECHANIC Pulse 73 07/23/2024 10:07 AM ENGINE BUILDUP MECHANIC Temperature 36.4 C (97.5 F) 04/06/2024 10:32 AM CDT Respiratory Rate 9 04/06/2024 12:10 PM CDT Oxygen Saturation 99% 05/04/2024 11:23 AM ENGINE BUILDUP MECHANIC Inhaled Oxygen Concentration - - Weight 98.4 kg (217 lb) 07/23/2024 10:07 AM ENGINE BUILDUP MECHANIC Height 172.7 cm (5' 8 ) 07/23/2024 10:07 AM ENGINE BUILDUP MECHANIC Body Mass Index 32.99 07/23/2024 10:07 AM ENGINE BUILDUP MECHANIC Plan of Treatment Health Maintenance Due Date Last Done Comments Depression Screening 1980 Hepatitis C Screening 1980 DTaP/Tdap/Td Vaccine (1 - Tdap) 11/07/1991 Varicella Vaccines (1 of 2 - 13+ 2-dose series) 1993 Hepatitis B Screening 1998 Regular Well Visit/Exam 18-64 1998 Influenza Vaccine (#1) 2024 Breast Cancer Screening-Mammogram 09/22/2024 09/23/2023, 01/09/2021 HPV Vaccines Aged Out No longer eligi ble based on patient's age to complete this topic Pneumococcal vaccine <65 Aged Out No longer eligible based on patient's age to complete this topic Procedures Procedure Name Priority Date/Time Associated Diagnosis Comments XR HIPS BILATERAL 3 OR 4 VW Schedule Routine, Read Routine (OP Routine) 07/23/2024 10:02 AM ENGINE BUILDUP MECHANIC Greater trochanteric bursitis of both hips MS ARTHROCENTESIS ASPIR&/INJ MAJOR JT/BURSA W/O US Routine 07/23/2024 10:00 AM ENGINE BUILDUP MECHANIC Greater trochanteric bursitis of both hips MS ARTHROCENTESIS ASPIR&/INJ MAJOR JT/BURSA W/O US Routine 07/23/2024 10:00 AM ENGINE BUILDUP MECHANIC Greater trochanteric bursitis of both hips SCREENING MAMMOGRAM BILATERAL W TORSTEN W IMPLANTS Schedule Routine, Read Routine (OP Routine) 09/23/2023 8:49 AM CDT Screening mammogram, encounter for from Last 3 Months or Most Recently Relevant to Health Maintenance Results * XR Hips Bilateral 3 or 4 Views (07/23/2024 10:02 AM ENGINE BUILDUP MECHANIC) Anatomical Region Laterality Modality Lower Extremities, Hip, Pelvis Bilateral D igital Radiography Narrative 07/23/2024 10:36 AM ENGINE BUILDUP MECHANIC X-ray of the bilateral hips viewed and interpreted. There is no evidence of fracture, subluxation, or bony abnormality. Jada Morales NP IMG XR PROCEDURES Final Result * MS ARTHROCENTESIS ASPIR&/INJ MAJOR JT/BURSA W/O US (07/23/2024 10:00 AM ENGINE BUILDUP MECHANIC) Narrative Jada Morales NP - 07/23/2024 10:00 AM ENGINE BUILDUP MECHANIC Jada Morales NP 07/23/2024 10:36 AM Greater [...] the procedure well with no immediate complications us Jada Morales LADLE OPERATOR IN CLINIC/BEDSIDE ORDER [place] Final Result * MS ARTHROCENTESIS ASPIR&/INJ MAJOR JT/BURSA W/O US (07/23/2024 10:00 AM ENGINE BUILDUP MECHANIC) Narrative Jada Morales NP - 07/23/2024 10:00 AM ENGINE BUILDUP MECHANIC Jada Morales NP 07/23/2024 10:36 AM Greater [...] the procedure well with no immediate complications us Jada Morales LADLE OPERATOR IN CLINIC/BEDSIDE ORDER [place]LALLI Final Result * [...] for her next mammogram. Electronically signed by: Nikki Erickson M.D. Narrative 09/23/2023 8:58 AM CDT EXAMINATION: SCREENING MAMMOGRAM [...] Most Recently Relevant to Health Maintenance Insurance [facility] IDLA [facility] Care Teams Electronic Equipment Repairer Relationship Specialty Start Date End Date Danya Mccollum MD [address] [place] [address] PCP - General 11/09/20 Earnest Dempsey MD [address] [place] [address] Transfer Iron Operator Obstetrics and Gynecology 11/30/21
--- OUTSIDE RECORDS SUMMARY | 2024-09-10 06:04 | XMS_ITS | Clinical Summary ---
Author Organization [facility] Address [address] [place] [address] Phone Care Team Providers Care Bobcat Driver/Labor Name Role Phone Julieta Barros MD Primary Care Provider Social History Tobacco Use Types Packs/Day Years Used Date Smoking Tobacco: Never Assessed Comments Unknown Sex and Gender Information Value Date Recorded Sex Assigned at Not on file Legal Sex Female 4:36 PM CDT Gender Identity Not on file Sexual Orientation Not on file Last Filed Vital Signs Vital Sign Reading Time Taken Comments Blood Pressure 145/84 04/24/2018 11:36 AM AWNING MAKER AND INSTALLER Pulse 82 04/24/2018 11:36 AM AWNING MAKER AND INSTALLER Temperature 36.6 C (97.9 F) 04/24/2018 11:36 AM AWNING MAKER AND INSTALLER Respiratory Rate 16 04/24/2018 11:36 AM AWNING MAKER AND INSTALLER Oxygen Saturation 99% 04/24/2018 11:36 AM AWNING MAKER AND INSTALLER Inhaled Oxygen Concentration - - Weight 108.9 kg (240 lb) 03/19/2018 11:38 AM CDT Height - - Body Mass Index - - Plan of Treatment Health Maintenance Due Date Last Done Comments Hepatitis C Virus (HCV) Screening 1980 TdaP Immunization 1980 Hepatitis B Immunization (1 of 3 - 19+ 3-dose series) 11/07/1999 Influenza Immunization (#1) 2024 SARS-COV-2 Immunization ( - 2023-25 season) 2024 Respiratory Syncytial Virus (RSV) Immunization (Adult) (1 - 1-dose 75+ series) 11/07/2055 Meningococcal Immunization (ACWY) Aged Out No longer eligible based on patient's age to complete this topic Pneumococcal Immunization Combined Aged Out No longer eligible based on patient's age to complete this topic Rotavirus Immunization Aged Out No lo nger eligible based on patient's age to complete this topic Insurance MEDICAID [place] Care Teams Bobcat Driver/Labor Relationship Specialty Start Date End Date [facility] Julieta Reyez MD [address] [place] [address] [address] [place] [address] PCP - General Family Medicine 01/29/18
--- OUTSIDE RECORDS SUMMARY | 2024-09-10 06:04 | XMS_ITS | Encounter Summary ---
Author Organization [facility] Address [address] [place] [address] Care Team Providers Care Angle Furnaceman Name Role Phone Danya Mccollum MD Primary Care Provider [phone] Earnest Dempsey MD Unavailable [phone] Reason for Visit * Reason Onset Date Comments Scheduling Appointments 01/06/2021 Confirmi ng mammogram appt- no answer Encounter Details Date Type Department Care Team (Late st Contact Info) Description 01/06/2021 Telephone [facility] [address] [place] [address] Rhonda Bradley RT Scheduling Appointments (Confirming mammogram appt- no answer) Social History Tobacco Use Types Packs/Day Years Used Date Smoking Tobacco: Unknown Alcohol Use Standard Drinks/Week Comments Yes 0 (1 standard drink = 0.6 oz pur e alcohol) Comments Unknown Sex and Gender Information Value Date Recorded Sex Assigned at Not on file Legal Sex Female 11:49 PM SENIOR FRONT END DEVELOPER Gender Identity Not on file Sexual Orientation Not on file documented as of this encounter Plan of Treatment Not on file documented as of this encounter Visit Diagnoses Not on filedocumented in this encounter Care Teams Angle Furnaceman Relationship Specialty Start Date End Date Danya Mccollum MD [address] [place], [place] [id number] PCP - General 11/09/20 Earnest Dempsey MD [address] [address] [address] Drilling Field Specialist Obstetrics and Gynecology 11/30/21 documented as of this encounter
--- NOTE | 2024-09-10 06:51 | P.PNAN_ITS ---
Anes - Initial Pre Proc Eval Procedure: Operation Date: 09/10/24 07:30 Proposed Procedures p Panniculectomy - Gretel An MD Date/Time: 09/10/24 06:51 Surgeon: Gretel An MD Pre Op Diagnosis: Excess Skin of Abdomen Patient Data Age: 43 Gender: F Height: 1.75 m Weight: 96.75 kg Last Vital Signs Temp 36.8 C 09/10/24 06:20 Pulse 82 09/10/24 06:20 Resp 14 09/10/24 06:20 BP 127/88 09/10/24 06:20 Pulse Ox 100 09/10/24 06:20 O2 Del Method Room Air 09/10/24 06:20 Allergies Allergy/AdvReac Type Severity Reaction Status Date / Time gabapentin AdvReac Mild Other Verified 09/10/24 06:17 Home Medications ?Medication ?Instructions ?Recorded ?Confirmed ?Type esomeprazole magnesium 20 mg 20 mg PO DAILY 05/01/22 09/10/24 History capsule,delayed release (Nexium) Patient hx anesthesia problems: none Family hx anesthesia problems: none Results Review: All pre-operative results and documents have been reviewed as part of the pre- operative evaluation. [facility] Past Medical History Medical History (Updated 09/10/24 @ 06:52 by Hu Chand MD) Obesity Surgical History Surgical History (Updated 09/10/24 @ 06:52 by Hu Chand MD) H/O nasal septoplasty History of tubal ligation H/O: hysterectomy Social History Social History Smoking status: Never smoker Second hand tobacco smoke exposure: No Alcohol intake: current Drinks per week: 1 Substance use: never Substance use type: does not use Living arrangements: with family Spiritual care concerns: No Anes - Eval Final PreProcedure Day of Procedure 09/10/24 06:51 Patient weight: obese Heart: regular rate and rhythm Lungs: clear to auscultation Airway: Mallampati scale class II Neurological: alert and oriented Last oral intake: >/= 8 hours ASA classification: II Emergent: no Anesthetic plan: proceed Anesthesia type and monitoring: general LMA and standard monitoring Results Review: All pre-operative results and documents have been reviewed as part of the pre- operative evaluation. Informed Consent: The patient's anesthetic plan and its attendant risks and benefits were discussed with the patient/family/POA. Questions were solicited and answers prov ided to the satisfaction of the patient/family/POA.
[2024-09-10] MEDS: LACTATED RINGERS 1,000 ML 30 ML IV CONT ×2 (06:54→09:19)
[2024-09-10] MEDS: SCOPOLAMINE 1 MG PATCH 1 PATCH TRANSDERM (06:55)
--- NOTE | 2024-09-10 07:00 | WPDHPUPDATE1 ---
History and Physical Update Update Date/Time: 09/10/24 07:00 Patient seen and examined in pre-operative holding area. No interval change in medical history or symptoms. Patient remembers previous discussion of benefits and alternatives to procedure. Continues to desire to proceed with infraumbilical panniculectomy. I reviewed the risks including but not limited to bleeding ,infection, asymmetry, undesireable cosmetic appearance, partial/total skin/umbilicus loss, no change or worsening of symptoms, change in sensation, seroma. I discussed the possible use of assistants and their level of participation in the case. Patient stated understanding and signed the consent form wishing to proceed
--- NOTE | 2024-09-10 07:01 | W.PM.PROC2 ---
Procedure Note - Detailed Date of Procedure 09/10/24 Pre-op Diagnosis Excess Skin of Abdomen hips and flanks Post-op Diagnosis Same Procedure Performed excision excess skin infraumbilcal abdomen and hips/flanks Surgeon Gretel An MD Heavy Duty Mechanic michelle machado pa-c Anesthesia General Description of Procedure Patient was seen in the preoperative holding area where the abdominal pannus was marked as it extended laterally past the anterior superior iliac crests to invole superolateral hips and flanks and consent form was signed. Patient was taken back to the operating room and placed on the table in the supine position. Time-out was performed with Anesthesia, surgeon, and staff agreeing on patient's name, site, and surgery to be performed. SCDs were placed on the lower extremities and inflated. Antibiotics were given IV. After general anesthesia was administered the abdomen was prepped and draped in usual sterile fashion. I designed my lower incision 7 cm above the vaginal introitus on upward stretch going transversely and then extending superolaterally past the anterior superior iliac spine onto the hips and flanks to address the excess skin laxity and pannus completely. I made my incision with 10 blade scalpel through skin and dermis. Bovie cautery was used dissect through subcutaneous tissue down to the rectus fascia. I proceeded with undermining this pannus above the rectus fascia stopping below the umbilicus. The bed was flexed to approximately 15? of flexion. Rubio clamps were used to hoa the central and lateral resection margins of the flap. After verifying amount of skin to be resected from the infraumbilical abdomen and hips/flanks this incision was made with 10 blade scalpel through skin and dermis. Bovie cautery was used to resect this excess skin and subcutaneous tissue. I irrigated with normal saline. Hemostasis was obtained with Bovie cautery. Yadkin clamps were used to provisionally position the flap. Two hundred fifteen BRADEN drains were placed coming out laterally. Milly's fascia was closed with 2-0 Vicryl suture. 2-0 and 3-0 Vicryl were used for dermal closure. 4-0 Monocryl was used for subcuticular closure. I injected 20 cc of 1% lidocaine with epinephrine and 0.5% Marcaine plain along the incision. The drains were hooked bulb suction. A dressing of Mastisol, Steri-Strips, 4 x 4, ABDs and an abdominal binder were then applied. Patient was awakened from anesthesia and transferred to the recovery room in stable condition. Complications: None Estimated blood loss: 15 cc Disposition: Patient tolerated the procedure well and will be going home later today. Michelle Machado PA-C was essential for positioning, retraction, resection, hemostasis, closure and dressing placement [facility] [place] Billing Surgery - Charge Forward: Surgery Billing ([id number])
[2024-09-10] MEDS: ceFAZolin SODIUM 2 GM/20 ML SW SYRINGE IV PUSH (07:05)
[2024-09-10] MEDS: BUPIVACAINE/EPINEPHRINE 0.5% 10 ML VIAL 20 ML INFILTRATE (08:39)
[2024-09-10] MEDS: LIDOCAINE 1% LOCAL INJ 20 ML VIAL INFILTRATE (08:39)
[2024-09-10] MEDS: fentaNYL CITRATE INJ (*CRX) 100 MCG/2 ML VIAL 25 MCG IV PUSH ×3 (08:55→09:22)
--- NOTE | 2024-09-10 10:02 | SUR.PHASEII ---
Dr. An notified of pt's c/o intense burning at her incision with no relief from pain medications. Dr. An OK'd use of an ice pack. Pt given ice pack.
--- NOTE | 2024-09-10 10:48 | WPDANESPN ---
Anes - Prog Note Post-Op Date/Time: 09/10/24 10:48 Cardiovascular status: normal Respiratory status: normal Airway patency: baseline Mental status: baseline Post-Op hydration status: normal Vital Signs: Last Vital Signs Temp 36.4 C L 09/10/24 08:49 Pulse 61 09/10/24 10:09 Resp 16 09/10/24 10:09 BP 125/75 09/10/24 10:09 Pulse Ox 100 09/10/24 10:09 O2 Del Method Room Air 09/10/24 10:09 O2 Flow Rate 3 09/10/24 09:19 Pain Score (VAS): 08/24 I/O: Intake & Output 09/09/24 09/10/24 09/10/24 23:59 07:59 15:59 Intake Total 1175 Output Total 20 Balance 1155 Patient Feedback: Patient satisfied with anesthetic care.
== END 2024-09-10 10:38 | disposition home or self-care (01) ==
PROVIDERS: PCP Internal Medicine; Visit Provider Plastic Surgery
PROC: 0JB80ZZ Excision of Abdomen Subcutaneous Tissue and Fascia, Open Approach (ICD-10-PCS; CPT 15830; principal; 2024-09-10 07:30)
DX: Z41.1 Encounter for cosmetic surgery (principal); L98.7 Excessive and redundant skin and subcutaneous tissue
CPT/HCPCS: 15830; 15834